=== PATIENT | male | born 1965 | race Caucasian/White ===

== ENCOUNTER 2017-03-27 05:27 | Day surgery (SDC) | payer OTHER ==
[~2017-03-27] VITALS: Ht 180.3 cm; Wt 113.4 kg
--- NOTE | ~2017-03-27 | EKG ---
[address] [address] ELECTROCARDIOGRAM REPORT Name: INES WYNNE Room #: 150-1 [facility].#: [id number] Admission: 03/27/17 Attend Phys: Fritz Aiken MD Discharge: Date of : 69 Report #: [id number] THIS REPORT FOR: //name// [facility] Test Date: 2017-03-27 Test Time: 07:01:46 Pat Name: INES WYNNE Department: Room: 150 1 Gender: M Member Services Coordinator: MEG : 1965 Requested By: Fritz Aiken Order Number: [id number] MD: Prashanth Glass Measurements Intervals [place] Rate: 88 P: 24 ME: 147 QRS: -13 QRSD: 93 T: -11 QT: 356 QTc: 431 Interpretive Statements Sinus rhythm Left ventricular hypertrophy Borderline T abnormalities, inferior leads No previous ECG available for comparison Electronically Signed On 03-27-2017 9:08:52 CDT by Prashanth Glass [email or web address] <ELECTRONICALLY SIGNED> By: Prashanth Glass MD, [facility] 03/27/17 0908 07 0701 Prashanth Glass MD, FACC /EPI
--- NOTE | ~2017-03-27 | O ---
[facility] [place] [address] OPERATIVE REPORT Name: INES WYNNE Room #: DEP [facility]#: [id number] Admission: 03/27/17 Attend Phys: Fritz Aiken MD Discharge: 03/27/17 Date of : 69 Report #: [id number] THIS REPORT FOR: //name// CC: Radha Aiken DATE OF SERVICE: 03/27/2017 SERVICE: Orthopedics. FACILITY: [facility]. SURGEON: Fritz Aiken MD AUTHORIZATION SPECIALIST: None. PREOPERATIVE DIAGNOSES: 1. Right shoulder fracture-dislocation. 2. Right glenoid fracture. 3. Right shoulder Bankart tear. 4. Right shoulder loose body. 5. Right shoulder glenoid malunion. POSTOPERATIVE DIAGNOSES: 1. Right shoulder fracture-dislocation. 2. Right glenoid fracture. 3. Right shoulder Bankart tear. 4. Right shoulder loose body. PROCEDURES: 1. Right shoulder arthroscopic repair of fracture-dislocation. 2. Right shoulder bony Bankart repair. 3. Right shoulder arthroscopic loose body removal. DRAINS: None. SPECIMENS: Chondral fragments, which were discarded. COMPLICATION: There was a soft bone quality, which resulted in suture anchor pull out with low profile 1.7 mm anchors. As a result, we converted to 3-mm knotless anchor for 2 of the 3 final anchors. ANESTHESIA TYPE: Regional with general endotracheal. HISTORY AND INDICATIONS: The patient is a 51-year-old right-hand dominant gentleman who was stepping over the gas line at the gas station, filling up the [facility] [address] [place] [address] OPERATIVE REPORT Name: INES WYNNE Room #: DEP [facility] M.Jillian.#: [id number] Admission: 03/27/17 Attend Phys: Fritz Aiken MD Discharge: 03/27/17 Date of : 69 Report #: [id number] work vehicle that he was driving when he tripped and landed on his right outstretched arm and sustained a fracture-dislocation with a very large glenoid fracture. This was fragmented. He had preoperative imaging and then he was indicated for surgical treatment because he continued to have apprehension and several episodes of subluxation in the short period of time following the injury until surgery, which was only a few weeks. We had made plans for prompt surgical repair. Administrative needs were addressed and the patient was ultimately approved to proceed with surgery approximately 5 weeks postoperatively. PROCEDURE IN DETAIL: After right upper extremity was correctly identified in the preoperative holding area as the operative extremity, the patient underwent placement of a single shot regional nerve block. He was then taken to the operating room and placed supine on operating table and general anesthesia was induced without complication. He was turned into lateral decubitus position with the right side up and padded appropriately. Prophylactic antibiotics were administered. Examination under anesthesia demonstrated gross subluxation of the shoulder with ability to remain dislocated. It was reducible. Right upper extremity was prepped and draped in standard sterile fashion. Time-out procedure was performed. Standard posterior viewing portal was established. Diagnostic arthroscopy revealed intact cartilage on the humeral side. The rotator cuff was intact. The biceps tendon was intact. There was a small humeral side Hill-Sachs lesion, but this was not in a position that interfaced with the glenoid via the on track/off track methodology, so no treatment was required on the humeral side. The anterior interval portal was placed in a low position, just above the subscapularis and then a high interval portal was established under direct arthroscopic visualization for visualization and preparation. The bony Bankart lesion had already begun to unite in a non-anatomic position, medial on the glenoid neck and so the first portion of the case was spent mobilizing this tissue, so that it could be repair in the appropriate position. Therefore, this required disruption of the fibrous union that was present, so as to allow it to be placed into an anatomic position. The more medial tissue was healthier. The more superficial tissue, which was the lateral tissue including the bone and cartilage was still very fragmented and friable and did not tolerate any incorporation into the repair. In fact much of this was freely floating and there was a free fragment of articular cartilage with a thin layer of bone underneath it that was freely mobile, measured about 1 cm x 28 mm in length and this did not have sufficient bone to allow incorporation into the repair and was essentially a free loose body and this was excised. The shaver and the elevator were used to mobilize the tissue to allow for the Bankart repair and then I began distally working proximally with the first anchor placed near the apex of the pathology, which was at the 6 o'clock position. Selected low profile all suture anchors initially so as to obtain good fixation in the [address] [address] OPERATIVE REPORT Name: INES WYNNE Room #: DEP [facility] Yamilka#: [id number] Admission: 03/27/17 Attend Phys: Fritz Aiken MD Discharge: 03/27/17 Date of : 69 Report #: [id number] cancellous bone, but the bone had soften in the interim since the injury and there was difficulty with fixation with these anchors. One anchor held well and allowed for a mattress suture to be placed at the 5:30 position for plication of the inferior glenohumeral ligament. One limb was passed at the 6:30 position and the second limb was passed at approximately 5 o'clock position to reduce this tissue. The posterior labrum was intact. A labral tape was then used to pass with a luggage-type suture technique around the labrum incorporating component of the bony pathology into the repair and reducing it to the glenoid neck with a Raphael and Nephew knotless suture anchor. Because the bone was soft with the previous anchor placement, which specifically undersized the drill bit and then seated the anchor below the articular surface, so that there was a good fixation without any issues with a proud anchor and this did in fact hold. The final anchor was then selected with the similar type and a mattress suture was again placed with a luggage tag suture configuration to reduce the more proximal portion of the anterior capsule ligamentous structure to the glenoid. The overall cartilage loss is on the order of 25-30%, and this again being free loose bodies from the fragmented glenoid. The poor bone quality and the malunion on the medial neck did require additional effort at soft tissue mobilization and tissue manipulation including bony fragment incorporation and excision to optimally repair this tissue. The wound was then copiously irrigated. All the bony debris was lavaged out of the shoulder and then the instruments were removed and the portal sites were closed with a deep Vicryl followed by superficial 3-0 Monocryl. Sterile dressing was applied followed by an abduction pillow sling. The patient was awakened from anesthesia and taken to recovery room in stable condition. There were no complications and all counts were recorded as correct. <ELECTRONICALLY SIGNED> By: Fritz Aiken MD 03/28/17 1814 1157 [id number] Fritz Aiken MD /nt
[~2017-03-27 05:27] MED LIST: ASPIR 8181 MG PO; CO Q-10100 MG PO; IBUPROFEN 600600 M1 PO; LANTUS100 UNIT/M SUBQ; LOSARTAN POTAS100 MG PO; LOSARTAN POTASS50 MG PO; METFORMIN HCL500 MG PO; PIOGLITAZONE-M1 EAC1 PO; PIOGLITAZONE15 MG; SIMVASTATIN40 MG PO; VITAMIN B COMP1 EACH PO
[2017-03-27 09:08] VITALS: BP 136/86
== END 2017-03-27 14:30 | disposition home or self-care (01) ==
LOC: OR 05:27 → TBA 05:28 → OR 09:02
DX: S42.141A Displaced fracture of glenoid cavity of scapula, right shoulder, initial encounter for closed fracture (principal); S43.431A Superior glenoid labrum lesion of right shoulder, initial encounter; M24.011 Loose body in right shoulder; I10 Essential (primary) hypertension; E78.00 Pure hypercholesterolemia, unspecified; E11.9 Type 2 diabetes mellitus without complications; Z79.4 Long term (current) use of insulin; Z98.890 Other specified postprocedural states; Z79.82 Long term (current) use of aspirin; Z79.899 Other long term (current) drug therapy; W01.0XXA Fall on same level from slipping, tripping and stumbling without subsequent striking against object, initial encounter; Y93.89 Activity, other specified; Y92.524 Gas station as the place of occurrence of the external cause; Y99.8 Other external cause status
CPT/HCPCS: 50010; 50101; 50172; 50386; 50417; 50612; 50733; 50950; 51038; 51445; 53610; 54170; 55430; 56524; 56525; 56527; 56617; 62110; 62900; 64039; 70005